=== PATIENT | female | born 1970 | race Caucasian/White ===

== ENCOUNTER 2017-06-21 13:16 | Emergency (ER) | payer BC ==
[~2017-06-21] VITALS: Ht 152.4 cm; Wt 55.0 kg
[2017-06-21 13:19] VITALS: Ht 152.4 cm; Wt 55.0 kg
[2017-06-21] MEDS ORDERED: KETOROLAC 30 MG INJ IV STA (14:35)
[2017-06-21] MEDS ORDERED: SOD CHLORIDE 0.9% 1,000 ML IV STA (14:35)
[2017-06-21 15:07] LABS: ADD UMIC NO; UR ASCORBIC ACID 20 mg/dL (NEGATIVE); UR BILIRUBIN (Dip) NEGATIVE (NEGATIVE); UR BLOOD (Dip) NEGATIVE (NEGATIVE); UR CLARITY CLEAR (CLEAR); UR COLOR YELLOW (YELLOW); UR GLUCOSE (Dip) NEGATIVE (NEGATIVE); UR KETONES (Dip) NEGATIVE (NEGATIVE); UR LEUKOCYTE ESTERASE (Dip) NEGATIVE Leu/ul (NEGATIVE); UR NITRITE (Dip) NEGATIVE (NEGATIVE); UR SPECIFIC GRAVITY (Dip) 1.016 (1.003-1.030); UR TOTAL PROTEIN (Dip) NEGATIVE (NEGATIVE); UR UROBILINOGEN (Dip) NEGATIVE (NEGATIVE)
[2017-06-21 15:20] LABS: BASOPHILS % 0.5 % (0.0-2.0); EOSINOPHILS # 0.1 10^3/ul (0.0-0.5); EOSINOPHILS % 1.2 % (0.0-7.0); HEMATOCRIT 38.6 % (37.0-47.0); LYMPHOCYTES # 1.6 10^3/ul (0.8-2.9); LYMPHOCYTES % 26.9 % (15.0-51.0); MEAN CORPUSCULAR HEMOGLOBIN 31.2 pg (29.0-33.0); MEAN CORPUSCULAR HGB CONC 36.3 g/dl (32.0-37.0); MEAN PLATELET VOLUME 10.2 fl (7.4-10.4); MONOCYTE # 0.5 10^3/ul (0.3-0.9); MONOCYTES % 7.9 % (0.0-11.0); NEUTROPHIL # 3.8 10^3/ul (1.6-7.5); NEUTROPHILS % 63.3 % (39.0-77.0); PLATELET COUNT 281 10^3/UL (140-415); RED BLOOD COUNT 4.49 10^6/ul (4.20-5.40)
[2017-06-21 15:33] LABS: ALBUMIN 4.9 g/dl (3.3-4.9); ALBUMIN/GLOBULIN RATIO 1.25; BILIRUBIN,INDIRECT 0.6 mg/dl (0-1.1); BILIRUBIN,TOTAL 0.6 mg/dl (0.2-1.3); CALCIUM 9.3 mg/dl (8.4-10.2); CREATININE 0.67 mg/dl (0.44-1.00); POTASSIUM 3.7 mmol/L (3.5-5.1); TOTAL PROTEIN 8.8 g/dl (6.1-8.1)
--- NOTE | 2017-06-21 15:35 | ERD ---
ER Documentation Chief Complaint Date/Time DATE: 06/21/17 TIME: 15:32 Chief Complaint right lower quadrant pain,sent by pmd r/o appendecitis HPI This is a 46-year-old female, with past medical history for thyroiditis and cervical cancer, presenting to the emergency department with right lower quadrant abdominal pain and right lower back pain starting last night. Patient went to her primary care provider and from there was sent to the ER to rule out appendicitis. Patient states she has pain to right lower quadrant of abdomen that radiates to right lower back. Patient rating pain 8/10 and states it feels sharp. No migration of pain. No nausea or vomiting. No diarrhea or constipation. No fevers or chills. No dysuria, hematuria, urinary frequency or urinary urgency. No recent trauma or injury. No chest pain, shortness of breath or difficulty breathing. ROS All systems reviewed and are negative except as per history of present illness. Allergies Allergies: Coded Allergies: acetaminophen (Verified Allergy, Unknown, 06/21/17) rash hydrocodone (Verified Allergy, Unknown, 06/21/17) rash PMhx/Soc History of Surgery: Yes (HYSTERECTOMY, CERVICAL CANCER, C-SEC) Anesthesia Reaction: No Hx Neurological Disorder: No Hx Respiratory Disorders: No Hx Cardiac Disorders: No Hx Psychiatric Problems: No Hx Miscellaneous Medical Probl: Yes (HYPOTHYROID) Hx Alcohol Use: No Hx Substance Use: No Hx Tobacco Use: No Smoking Status: Never smoker Physical Exam Vitals Vital Signs Date Time Temp Pulse Resp B/P Pulse Ox O2 Delivery O2 Flow Rate FiO2 06/21/17 13:19 98.4 70 18 176/88 98 Physical Exam Const: No acute distress, alert Head: Atraumatic Eyes: Normal Conjunctiva ENT: Normal External Ears, Nose and Mouth. Neck: Full range of motion..~ No meningismus. Resp: Clear to auscultation bilaterally. No wheezing, rhonchi or crackles. No stridor or labored breathing. Patient is talking in complete sentences. Cardio: Regular rate and rhythm, no murmurs Abd: Soft, non tender, non distended. Normal bowel sounds. Negative Woodward sign. Negative McBurney point tenderness. Skin: No petechiae or rashes Back: No midline or flank tenderness. No CVA tenderness Ext: No cyanosis, or edema Neur: Awake and alert Psych: Normal Mood and Affect Result Diagram: 06/21/17 1453 06/21/17 1453 Results 24 hrs Laboratory Tests Test 06/21/17 14:40 06/21/17 14:53 Urine Color YELLOW Urine Clarity CLEAR Urine pH 7.0 Urine Specific [place] 1.016 Urine Ketones NEGATIVEmg/dL Urine Nitrite NEGATIVEmg/dL Urine Bilirubin NEGATIVEmg/dL Urine Urobilinogen NEGATIVEmg/dL Urine Leukocyte Esterase NEGATIVELeu/ul Urine Hemoglobin NEGATIVEmg/dL Urine Glucose NEGATIVEmg/dL Urine Total Protein NEGATIVEmg/dl White Blood Count 6.010^3/ul Red Blood Count 4.4910^6/ul Hemoglobin 14.0g/dl Hematocrit 38.6% Mean Corpuscular Volume 86.0fl Mean Corpuscular Hemoglobin 31.2pg Mean Corpuscular Hemoglobin Concent 36.3g/dl Red Cell Distribution Width 12.0% Platelet Count 11031^3/UL Mean Platelet Volume 10.2fl Neutrophils % 63.3% Lymphocytes % 26.9% Monocytes % 7.9% Eosinophils % 1.2% Basophils % 0.5% Nucleated Red Blood Cells % 0.0/100WBC Neutrophils # 3.810^3/ul Lymphocytes # 1.610^3/ul Monocytes # 0.510^3/ul Eosinophils # 0.110^3/ul Basophils # 0.010^3/ul Nucleated Red Blood Cells # 0.010^3/ul Sodium Level 142mmol/L Potassium Level 3.7mmol/L Chloride Level 106mmol/L Carbon Dioxide Level 26mmol/L Anion Gap 14 Blood Urea Nitrogen 10mg/dl Creatinine 0.67mg/dl Glucose Level 88mg/dl Calcium Level 9.3mg/dl Total Bilirubin 0.6mg/dl Direct Bilirubin 0.00mg/dl Indirect Bilirubin 0.6mg/dl Aspartate Amino Transf (AST/SGOT) 30IU/L Alanine Aminotransferase (ALT/SGPT) 41IU/L Alkaline Phosphatase 154IU/L Total Protein 8.8g/dl Albumin 4.9g/dl Globulin 3.90g/dl Albumin/Globulin Ratio 1.25 Lipase 528U/L Current Medications Medications (Trade) Dose Ordered Sig/Francia Route PRN Reason Start Time Stop Time Status Last Admin Dose Admin Sodium Chloride (NS) 1,000 ml @ 1,000 mls/hr Q1H STAT IV 06/21/17 14:35 06/21/17 15:34 DC 06/21/17 15:00 Ketorolac Tromethamine (Toradol) 30 mg ONCE STAT IV 06/21/17 14:35 06/21/17 14:37 DC 06/21/17 15:00 Procedures/MDM [place] [id number] Radiology Main Line: [phone] DIAGNOSTIC IMAGING REPORT Patient: ANGÉLICA WILSON : 1970 Age: 46 Sex: F MR #: [id number] DOS: 06/21/17 1435 Ordering MD: RICK GREGORY NP Location: [facility] Room/Bed: PROCEDURE: CT ABDOMEN AND PELVIS WITHOUT CONTRAST. CLINICAL INDICATION: Right lower quadrant pain TECHNIQUE: CT scan of the abdomen and pelvis without contrast was performed on a multidetector high-resolution CT scanner. The patient was scanned without intravenous contrast. Coronal and sagittal reformatted images were obtained from the axial source images. Images were reviewed on a high-resolution PACS workstation. The total exam CTDI equals 7.3 mGy and the total exam DLP equals 331.3 mGy-cm. One or more of the following dose reduction techniques were used: Automated exposure control. Adjustment of the mA and/or kV according to patient size. Use of iterative reconstruction technique. COMPARISON: None FINDINGS: CT abdomen: The lung bases are clear. The heart size is within limits. There is no significant pericardial effusion. Hepatic morphology is within limits. No gross contour deforming masses. Gallbladder is unremarkable. No evidence of intrahepatic or extrahepatic biliary dilatation. The spleen and pancreas are within normal limits. Both adrenal glands are within normal limits. Both kidneys are and normal anatomic position. No gross renal/ureteric calculi. No evidence of obstruction or hydronephrosis. The visualized GI tract demonstrate normal caliber loops of small and large bowel. No evidence of bowel obstruction. The appendix is within normal limits. The unenhanced aorta is unremarkable. No significant retroperitoneal lymphadenopathy. CT pelvis: The bladder appears to within normal limits. The uterus is not visualized. Rectosigmoid colon within limits. No sign of free fluid. Sign of pelvic lymphadenopathy. The visualized osseous structures appear to be within normal limits. IMPRESSION: 1. No evidence of acute intra-abdominal/pelvic inflammatory process. No evidence of bowel obstruction. The appendix is within normal limits. 2. No gross renal/ureteric calculi. No evidence of obstruction or hydronephrosis. 3. No free fluid or free air. No gross focal fluid collections. 4. Status post hysterectomy. MDM: This is a 46-year-old female presenting to emergency department with right lower quadrant abdominal pain that radiates to right lower back 2 days. Patient is afebrile and vital signs are stable. Patient was seen by her primary care provider, Dr. Cici Rucker, earlier today and was sent here to the ER to rule out appendicitis. IV access obtained. 1L normal saline bolus and Toradol 30mg IM given per senior staff consultant. Labs and urine ordered. CT abdomen and pelvis ordered. CBC shows no significant anemia or infection. CMP shows no significant electrolyte imbalance. AST 30, ALT 41 and Alkaline phosphatase 154. Bilirubin is normal. Glucose is normal. Lipase is 528. UA shows no infection. Urine is negative. CT abdomen and pelvis reviewed by radiologist as no evidence of acute intra-abdominal/pelvic inflammatory process. No evidence of bowel obstruction. The appendix is within normal limits. No gross renal/ureteric calculi. No evidence of obstruction or hydronephrosis. No free fluid or free air. No gross focal fluid collections. Status post hysterectomy. Consulted with my supervising physician, Dr. Qasim Mckeon regarding this patient and we agree that patient is appropriate for outpatient management. Differential diagnosis includes but not limited to acute appendicitis, diverticulitis, diverticulosis, bowel obstruction, constipation, infectious colitis, irritable bowel syndrome, inflammatory bowel disease, viral gastroenteritis, abdominal aortic aneurysm, food intolerance, celiac disease, UTI, pyelonephritis, nephrolithiasis, acute urinary retention or colorectal cancer. I doubt any emergent conditions such as appendicitis, diverticulitis, bowel obstruction, abdominal aortic aneurysm at this time due to normal vital signs and normal lab results. Patient is appropriate for outpatient management. Instructed patient to take tylenol and/or ibuprofen as needed for pain. Instructed patient to follow-up with primary care provider in the next 2-3 days for reassessment and additional management. Return to ED for any high fever, chest pain, difficulty breathing, shortness breath, wheezing, vomiting, diarrhea, abdominal pain or any new or worsening symptoms. Patient verbalizes understanding. All questions answered at discharge. Disclaimer: Inadvertent spelling and grammatical errors are likely due to EHR/ dictation software use and do not reflect on the overall quality of patient care. Also, please note that the electronic time recorded on this note does not necessarily reflect the actual time of the patient encounter. Departure Diagnosis: Primary Impression: Abdominal pain Abdominal location: right lower quadrant Qualified Code: R10.31 - Right lower quadrant abdominal pain Condition: Stable RICK URIOSTEGUI NP Jun 21, 2017 15:35
--- NOTE | 2017-06-21 16:01 | RADRPT ---
PROCEDURE: CT ABDOMEN AND PELVIS WITHOUT CONTRAST. CLINICAL INDICATION: Right lower quadrant pain TECHNIQUE: CT scan of the abdomen and pelvis without contrast was performed on a multidetector hig h-resolution CT scanner. The patient was scanned without intravenous contrast. Coronal and sagittal reformatted images were obtained from the axial source images. Images were reviewed on a high-resol [employer] PACS workstation. The total exam CTDI equals 7.3 mGy and the total exam DLP equals 331.3 mGy-c m. One or more of the following dose reduction techniques were used: Automated exposure control. Adjustment of the mA and/or kV according to patient size. Use of iterative reconstruction technique. COMPARISON: None FINDINGS: CT abdomen: The lung bases are clear. The heart size is within limits. There is no significant pericardial effus ion. Hepatic morphology is within limits. No gross contour deforming masses. Gallbladder is unremarkable. No evidence of intrahepatic or extrahepatic biliary dilatation. The spleen and pancreas are within normal limits. Both adrenal glands are within normal limits. Both kidneys are and normal anatomic position. No gross renal/ureteric calculi. No evidence of obstr uction or hydronephrosis. The visualized GI tract demonstrate normal caliber loops of small and large bowel. No evidence of irma wel obstruction. The appendix is within normal limits. The unenhanced aorta is unremarkable. No significant retroperitoneal lymphadenopathy. CT pelvis: The bladder appears to within normal limits. The uterus is not visualized. Rectosigmoid colon within limits. No sign of free fluid. Sign of pelvic lymphadenopathy. The visualized osseous structures appear to be within normal limits. IMPRESSION: 1. No evidence of acute intra-abdominal/pelvic inflammatory process. No evidence of bowel obstructio n. The appendix is within normal limits. 2. No gross renal/ureteric calculi. No evidence of obstruction or hydronephrosis. 3. No free fluid or free air. No gross focal fluid collections. 4. Status post hysterectomy. RPTAT: AARR Physician Lisette Date Time Electronically viewed and signed by Physician Lisette on 06/21/2017 16:01 GE/
[2017-06-21 16:29] VITALS: BP 152/76; PULSE 62; RESP 18; TEMP 97.9
== END 2017-06-21 16:30 | disposition home or self-care (01) ==
LOC: FTE 13:16
DX: R10.31 Right lower quadrant pain (principal); E03.9 Hypothyroidism, unspecified
CPT/HCPCS: 36415; 74176; 80053; 81003; 83690; 85025; 96374; 99285; J1885; J7030